=== PATIENT | female | born 1985 | race Hispanic/Latino ===

== ENCOUNTER 2024-10-28 20:39 | Emergency (ER) | payer MEDICAID, SELFPAY ==
[2024-10-28 22:21] LABS: HBSAB Concentration 118.82 mIU/mL; Hep B Surf AB REACTIVE (NonReactive); Hep C IgG Ab NONREACTIVE S/CO (NonReactive); Hep C Index 0.15 S/CO (0-0.79)
[2024-10-28 23:08] LABS: HIV (1/2) Antibody/Antigen NONREACTIVE (NonReactive); HIV 1/2 INDEX 0.06 S/CO (<1.00)
== END 2024-10-28 21:13 | disposition home or self-care (01) ==
LOC: ERS 20:39
DX: S69.91XA Unspecified injury of right wrist, hand and finger(s), initial encounter (principal); W50.4XXA Accidental scratch by another person, initial encounter; Y93.89 Activity, other specified
CPT/HCPCS: 36415; 86706; 86803; 87389; 99283